=== PATIENT | male | born 2000 | race Two or more races ===

== ENCOUNTER 2022-06-24 18:49 | Emergency (ER) | payer MEDICAID, OTHER ==
[~2022-06-24] VITALS: Ht 188 cm; Wt 77.1 kg
--- NOTE | 2022-06-24 19:19 | NUR ---
PARISA CARDOZA (MOTHER) [phone]
[2022-06-24 19:33] VITALS: BP 126/68
--- NOTE | 2022-06-24 20:09 | NUR ---
Patient discharged to home in stable condition. Written and verbal after care instructions given. Patient verbalizes understanding of instruction.
== END 2022-06-24 20:25 | disposition home or self-care (01) ==
LOC: ER 19:14
DX: Z00.00 Encounter for general adult medical examination without abnormal findings (principal)